=== PATIENT | male | born 2000 | race African-American/Black ===

== ENCOUNTER 2019-09-24 06:55 | Emergency (ER) | payer OTHER ==
[2019-09-25 13:41] LABS: SARS-CoV-2 MS2 Positive; SARS-CoV-2 N Gene Negative; SARS-CoV-2 S Gene Negative; SARS-CoV-2 by NAA Not Detected (NotDetected); SARS-CoV-2 orf1ab Negative
== END 2019-09-24 07:46 | disposition home or self-care (01) ==
LOC: ERS 06:55
DX: B34.2 Coronavirus infection, unspecified (principal); F17.200 Nicotine dependence, unspecified, uncomplicated
CPT/HCPCS: 87635; 99283; U0003